=== PATIENT | male | born 1945 | race Caucasian/White ===

== ENCOUNTER 2017-05-14 13:55 | Emergency (ER) | payer OTHER ==
[~2017-05-14] VITALS: Ht 180.3 cm; Wt 88.6 kg
[2017-05-14] MEDS ORDERED: CIPROFLOXACIN 500 MG TABLET PO ONE (16:00)
[2017-05-14] MEDS ORDERED: CIPROFLOXACIN 500 MG TABLET ONE (16:06)
[2017-05-14 16:37] VITALS: BP 164/89
== END 2017-05-14 16:38 | disposition home or self-care (01) ==
LOC: ED 16:13
DX: N45.1 Epididymitis (principal); I10 Essential (primary) hypertension; E78.00 Pure hypercholesterolemia, unspecified
CPT/HCPCS: 76870; 81001; 87086

== ENCOUNTER 2017-07-18 11:52 | Emergency (ER) | payer OTHER ==
[~2017-07-18] VITALS: Ht 180.3 cm; Wt 90.0 kg
[2017-07-18 12:03] VITALS: BP 185/96
[2017-07-18] MEDS ORDERED: INDOMETHACIN 50 MG CAPSULE PO ONE (14:30)
[2017-07-18] MEDS ORDERED: HYDROcodone/APAP 5/325 TABLET PO ONE (14:30)
[2017-07-18] MEDS ORDERED: COLCHICINE 0.6 MG TABLET PO ONE (14:30)
== END 2017-07-18 15:14 | disposition home or self-care (01) ==
LOC: ED 14:23
DX: M10.071 Idiopathic gout, right ankle and foot (principal); I10 Essential (primary) hypertension; E78.00 Pure hypercholesterolemia, unspecified
CPT/HCPCS: 36415; 84550; 99285

== ENCOUNTER → 2018-03-09 | Outpatient (CLI) | payer OTHER ==
[~2018-03-09] MED LIST: AMLO5TAB2 PO; ATOR40TA78 PO; CLOP75TA52 PO; METO50TA82 PO; SINCALIDE (KINEVAC) 5 MCG ONE
== END ==
LOC: PETCFH 12:34
PROVIDERS: ATTEND Surgery
DX: R10.9 Unspecified abdominal pain (principal)
CPT/HCPCS: 78227; A9537; J2805

== ENCOUNTER → 2018-05-15 | Outpatient (CLI) | payer OTHER ==
[~2018-05-15] MED LIST changes: -SINCALIDE (KINEVAC) 5 MCG ONE
== END | disposition home or self-care (01) ==
LOC: CVU 14:03
PROVIDERS: ATTEND Internal Medicine Cardiovascular Disease
DX: I65.23 Occlusion and stenosis of bilateral carotid arteries (principal); I25.810 Atherosclerosis of coronary artery bypass graft(s) without angina pectoris; I10 Essential (primary) hypertension; I35.8 Other nonrheumatic aortic valve disorders; E78.2 Mixed hyperlipidemia
CPT/HCPCS: 93306; 93880

== ENCOUNTER → 2018-06-16 | Outpatient (CLI) | payer OTHER | END | disposition home or self-care (01) | LOC: CVU 07:59 | PROVIDERS: ATTEND Surgery | DX: I70.0 Atherosclerosis of aorta (principal); I77.4 Celiac artery compression syndrome; I77.1 Stricture of artery; I10 Essential (primary) hypertension; E78.5 Hyperlipidemia, unspecified; I25.10 Atherosclerotic heart disease of native coronary artery without angina pectoris | CPT/HCPCS: 93978 ==

== ENCOUNTER 2018-08-24 13:02 | Day surgery (SDC) | payer OTHER ==
[~2018-08-24] VITALS: Ht 180.3 cm; Wt 88.2 kg
[~2018-08-24 13:02] MED LIST changes: -AMLO5TAB2 PO; +AMLO5TAB7 PO
[2018-08-24] MEDS ORDERED: SODIUM CHLORIDE 0.9% 1,000 ML IV ONE (13:27)
[2018-08-24] MEDS ORDERED: NYST1000 PO (13:54)
[2018-08-24] MEDS ORDERED: CHLO25TA PO (13:54)
[2018-08-24] MEDS ORDERED: ISOS30TA8 PO (13:54)
[2018-08-24 13:58] VITALS: BP 107/70
[2018-08-24 14:17] LABS: BASOPHILS # (AUTO) 0.02 x10^3/uL (0-0.1); BASOPHILS % (AUTO) 0 % (0-1); EOSINOPHILS # (AUTO) 0.13 x10^3/uL (0-0.4); EOSINOPHILS % (AUTO) 2 % (1-7); LYMPHOCYTES # (AUTO) 1.72 x10^3/uL (1-3.4); LYMPHOCYTES % (AUTO) 25 % (22-44); MD NO; MEAN CORPUSCULAR HEMOGLOBIN 30.4 pg (27.5-34.5); MEAN CORPUSCULAR HGB CONC 33.9 g/dL (33.2-36.2); MEAN CORPUSCULAR VOLUME 89.6 fL (81-97); MEAN PLATELET VOLUME 8.4 fL (7.4-10.4); MONOCYTES # (AUTO) 0.65 x10^3/uL (0.2-0.8); MONOCYTES % (AUTO) 9 % (2-9); NEUTROPHILS # (AUTO) 4.41 x10^3/uL (1.8-6.8); NEUTROPHILS % (AUTO) 64 % (42-75); PLATELET COUNT 196 x10^3/uL (130-400); RED BLOOD COUNT 4.85 x10^6/uL (4.38-5.82); RED CELL DISTRIBUTION WIDTH 13.9 % (9.4-14.8)
[2018-08-24 14:29] LABS: ALANINE AMINOTRANSFERASE 41 U/L (12-78); ALBUMIN 3.4 g/dL (3.4-5.0); ANION GAP 7 mmol/L (5-15); CALCIUM 8.6 mg/dL (8.5-10.1); CHLORIDE 111 mmol/L (98-107); CREATININE 1.26 mg/dL (0.7-1.3)
[2018-08-24 14:32] LABS: ALKALINE PHOSPHATASE 79 U/L (45-117); BILIRUBIN,TOTAL 0.8 mg/dL (0.2-1.0); TOTAL PROTEIN 6.5 g/dL (6.4-8.2)
[2018-08-24] MEDS ORDERED: BIVALIRUDIN 250 MG ONE (15:00)
[2018-08-24] MEDS ORDERED: VERAPAMIL 2.5 MG/ML, 2ML ONE (15:00)
[2018-08-24] MEDS ORDERED: TICAGRELOR 90 MG TABLET ONE (15:00)
[2018-08-24] MEDS ORDERED: FENTANYL PF 100 MCG/2ML ONE (15:00)
[2018-08-24] MEDS ORDERED: MIDAZOLAM 1 MG/ML, 5ML ONE (15:00)
[2018-08-24] MEDS ORDERED: SODIUM CHLORIDE 0.9% 1,000 ML IV SCH (16:16)
== END 2018-08-24 18:50 | disposition home or self-care (01) ==
LOC: CACL 13:02 → 5SO 16:26 → CACL 18:50
PROVIDERS: ATTEND Internal Medicine Cardiovascular Disease
DX: I25.82 Chronic total occlusion of coronary artery (principal); I10 Essential (primary) hypertension; E78.2 Mixed hyperlipidemia
CPT/HCPCS: 36415; 80053; 85025; 93459; 93567; 93571; 99156; 99157; C1769; C1887; C1894; J2250; J3010; J7030; Q9967; G0378; J0583

== ENCOUNTER 2020-04-23 10:23 | Emergency (ER) | payer MEDICARE, OTHER ==
[~2020-04-23] VITALS: Ht 180.3 cm; Wt 92.3 kg
[~2020-04-23 10:23] MED LIST changes: +AMLO-150 PO; -AMLO5TAB7 PO; +CHLO25TA PO; +ISOS30TA8 PO; +NYST1000 PO
--- NOTE | 2020-04-23 10:41 | NUR ---
PT PRESENTS TO ED WITH C/O CONSTANT EPIGASTRIC PAIN RADIATING TO LEFT CHEST AND SHOULDER X 2 DAYS, WORSE WHEN LAYING DOWN, ASSOCIATED WITH SOB. PT IS A&O, RESPS EVEN AND UNLABORED. EKG TAKEN ON ARRIVAL. ITZ ROQUE AT BEDSIDE FOR INITIAL ASSESSMENT.
[2020-04-23] MEDS ORDERED: MAALOX/HYOSCYAMINE/LIDOCAINE 45 ML BTL PO ONE (11:00)
[2020-04-23] MEDS ORDERED: SODIUM CHLORIDE FLUSH 10ML SYR IVF ONE (11:00)
--- NOTE | 2020-04-23 11:04 | NUR ---
pt instructed to provide clean catch urine, pt up to bathroom at this time with steady gait.
[2020-04-23] MEDS ORDERED: MAALOX/HYOSCYAMINE/LIDOCAINE 45 ML BTL ONE (11:06)
--- NOTE | 2020-04-23 11:35 | NUR ---
PIV placed, pt medicated per emar, labs drawn, blood and urine samples sent to lab. pt a&o, resps even and unlabored, nadn. awaiting CT and dispo.
[2020-04-23 11:41] LABS: BASOPHILS # (AUTO) 0.02 x10^3/uL (0-0.1); BASOPHILS % (AUTO) 0 % (0-1); EOSINOPHILS # (AUTO) 0.15 x10^3/uL (0-0.4); EOSINOPHILS % (AUTO) 2 % (1-7); LYMPHOCYTES # (AUTO) 1.85 x10^3/uL (1-3.4); LYMPHOCYTES % (AUTO) 27 % (22-44); MD NO; MEAN CORPUSCULAR HEMOGLOBIN 30.3 pg (27.5-34.5); MEAN CORPUSCULAR HGB CONC 33.8 g/dL (33.2-36.2); MEAN PLATELET VOLUME 8.3 fL (7.4-10.4); MONOCYTES # (AUTO) 0.55 x10^3/uL (0.2-0.8); MONOCYTES % (AUTO) 8 % (2-9); NEUTROPHILS # (AUTO) 4.19 x10^3/uL (1.8-6.8); NEUTROPHILS % (AUTO) 62 % (42-75); PLATELET COUNT 218 x10^3/uL (130-400); RED BLOOD COUNT 5.43 x10^6/uL (4.38-5.82); RED CELL DISTRIBUTION WIDTH 14.2 % (9.4-14.8)
[2020-04-23 11:44] LABS: MICROSCOPIC NOT IND
--- NOTE | 2020-04-23 11:46 | NUR ---
All monitors on pt, pt has frequent PACs and occaisional PVCs, NSR. ITZ Sargent notified. Orders discussed with MD, per MD no CXR indicated at this time. pt awaiting CT and dispo.
[2020-04-23 11:52] LABS: ALANINE AMINOTRANSFERASE 34 U/L (12-78); ALBUMIN 3.5 g/dL (3.4-5.0); ANION GAP 5 mmol/L (5-15); CALCIUM 9.1 mg/dL (8.5-10.1); CHLORIDE 110 mmol/L (98-107); CREATININE 0.99 mg/dL (0.7-1.3)
[2020-04-23 11:56] LABS: ALKALINE PHOSPHATASE 82 U/L (45-117); BILIRUBIN,TOTAL 0.7 mg/dL (0.2-1.0); TOTAL PROTEIN 6.9 g/dL (6.4-8.2); TROPONIN I < 0.015 ng/mL (0.000-0.045)
--- NOTE | 2020-04-23 12:35 | NUR ---
ALL RESULTS BACK, CHART UP FOR RECHECK. PT REASSESSED BY ITZ ROQUE, PT STATES PAIN IMPROVED S/P GI COCKTAIL. PT TO BE DC'D.
[2020-04-23 12:43] VITALS: BP 126/79
[2020-04-23] MEDS ORDERED: OMNIPAQUE 350 MG/ML, 100ML BOTTLE ONE (12:56)
--- NOTE | 2020-04-23 13:01 | NUR ---
PT GIVEN DC INSTRUCTIONS AND SCRIPT, EDUCATED REGARDING RX FOR MAALOX AND PRILOSEC. PT A&O, RESPS EVEN AND UNLABORED, NADN. PT DENIES PAIN. NSR ON SENIOR CLINICAL RESEARCH ASSOCIATE WITH OCC PAC. PT AMBULATORY TO DC DESK WITH STEADY GAIT, ACCOMPANYING.
== END 2020-04-23 13:02 | disposition home or self-care (01) ==
LOC: ED 10:50
DX: R10.13 Epigastric pain (principal); I49.3 Ventricular premature depolarization; I25.2 Old myocardial infarction; R94.31 Abnormal electrocardiogram [ECG] [EKG]; R06.02 Shortness of breath; I10 Essential (primary) hypertension; I25.10 Atherosclerotic heart disease of native coronary artery without angina pectoris; Z95.1 Presence of aortocoronary bypass graft
CPT/HCPCS: 36415; 74177; 80053; 81003; 83690; 84484; 85025; 93005; 99285; Q9967